=== PATIENT | female | born 1995 | race Caucasian/White ===

== ENCOUNTER 2018-12-14 10:14 | Emergency (ER) | payer OTHER ==
[~2018-12-14] VITALS: Ht 167.6 cm; Wt 63.0 kg
[2018-12-14] MEDS ORDERED: [UNRECOGNIZED DRUG - REMARK] (10:19)
[2018-12-14 11:41] LABS: BASO % 0.4 % (0.0-1.0); EOS # 0.1 10^3/uL (0.0-0.5); EOS % 0.6 % (0.0-3.0); HEMATOCRIT 42.7 % (36.0-47.0); HEMOGLOBIN 14.8 g/dl (12.0-15.5); LYMPH # 2.4 10^3/uL (1.5-5.0); LYMPH % 29.1 % (24.0-44.0); MEAN CORPUSCULAR HEMOGLOBIN 31.8 pg (27.0-33.0); MEAN CORPUSCULAR HGB CONC 34.7 g/dl (32.0-36.5); MEAN CORPUSCULAR VOLUME 91.8 fl (80.0-96.0); MONO # 0.4 10^3/uL (0.0-0.8); MONO % 5.2 % (0.0-5.0); NEUTROPHILS # 5.3 10^3/uL (1.5-8.5); NEUTROPHILS % 64.2 % (36.0-66.0); PLATELET COUNT, AUTOMATED 195 10^3/uL (150-450); RED BLOOD COUNT 4.65 10^6/uL (4.00-5.40); WHITE BLOOD COUNT 8.2 10^3/uL (4.0-10.0)
[2018-12-14 12:11] LABS: ALBUMIN 4.1 GM/DL (3.2-5.2); ALT/SGPT 15 U/L (12-78); BILIRUBIN,DIRECT < 0.1 MG/DL (0.0-0.2); BILIRUBIN,TOTAL 0.2 MG/DL (0.2-1.0); BLOOD UREA NITROGEN 10 MG/DL (7-18); CALCIUM LEVEL 9.3 MG/DL (8.5-10.1); CARBON DIOXIDE LEVEL 28 MEQ/L (21-32); CHLORIDE LEVEL 106 MEQ/L (98-107); CREATININE FOR GFR 0.73 MG/DL (0.55-1.30); GLOMERULAR FILTRATION RATE > 60.0 (>60); GLUCOSE, FASTING 79 MG/DL (70-100); LIPASE 125 U/L (73-393); POTASSIUM SERUM 4.3 MEQ/L (3.5-5.1); SODIUM LEVEL 139 MEQ/L (136-145); TOTAL PROTEIN 7.8 GM/DL (6.4-8.2)
[2018-12-14] MEDS ORDERED: KETO10TAB PO (13:56)
[2018-12-14 14:03] VITALS: BP 122/70
--- NOTE | 2018-12-15 07:13 | REP ---
PELVIC ULTRASOUND: Real-time sonographic evaluation of pelvis performed. Transabdominal and endovaginal technique are utilized. Urinary bladder is collapsed. The uterus measures 7.6 x 3.6 x 4.2 cm. Endometrial thickness is 7 mm. Right ovary measures 3.1 x 1.9 x 2.9 cm and left ovary 5.8 x 3.5 x 4.7 cm. There is a cyst of the left ovary 4.6 x 2.4 x 4.3 cm. There is a large amount of free fluid in the pelvis. There is no evidence of ovarian torsion, RI right ovary 0.63 and left ovary 0.55 with duplex Doppler evaluation. IMPRESSION: Left ovarian cyst appears partially collapsed with maximum diameter 4.6 cm. No torsion. Large amount of free fluid. Electronically Signed by Win Headley MD 12/16/2018 10:01 A
--- NOTE | 2018-12-22 13:41 | ED PDOC ---
Post-Departure Follow-Up ft hang nixon faxed formal report of pelvic us for fu Laura Salmeron MD Dec 22, 2018 13:41
== END 2018-12-14 14:05 | disposition home or self-care (01) ==
LOC: M ED 10:14
DX: N83.202 Unspecified ovarian cyst, left side (principal)

== ENCOUNTER → 2019-11-07 23:00 | Emergency (ER) | payer OTHER ==
[~2019-11-07 23:00] MED LIST: KETO10TAB PO; [UNRECOGNIZED DRUG - REMARK]
== END | disposition left against medical advice (07) ==
LOC: M ED 23:00
DX: Z53.21 Procedure and treatment not carried out due to patient leaving prior to being seen by health care provider (principal)

== ENCOUNTER → 2021-01-10 | Outpatient (CLI) | payer OTHER ==
[~2021-01-10] MED LIST changes: +B-2100TA PO; +DICY20TA11 PO; +LOES1TAB7 PO; +MAGN400T33 PO; +RIZA5TAB52 PO
[2021-01-10 15:16] LABS: BASO % 0.2 % (0.0-1.0); EOS # 0.1 10^3/uL (0.0-0.5); EOS % 1.1 % (0.0-3.0); HEMOGLOBIN 13.9 g/dl (12.0-15.5); LYMPH # 3.4 10^3/uL (1.5-5.0); LYMPH % 41.6 % (24.0-44.0); MEAN CORPUSCULAR HEMOGLOBIN 31.4 pg (27.0-33.0); MEAN CORPUSCULAR HGB CONC 34.8 g/dl (32.0-36.5); MEAN CORPUSCULAR VOLUME 90.3 fl (80.0-96.0); MONO # 0.5 10^3/uL (0.0-0.8); MONO % 5.7 % (2.0-8.0); NEUTROPHILS # 4.1 10^3/uL (1.5-8.5); PLATELET COUNT, AUTOMATED 227 10^3/uL (150-450); RED BLOOD COUNT 4.43 10^6/uL (4.00-5.40); WHITE BLOOD COUNT 8.1 10^3/uL (4.0-10.0)
[2021-01-10 17:01] LABS: ALBUMIN 3.9 GM/DL (3.2-5.2); ALT/SGPT 21 U/L (12-78); BILIRUBIN,DIRECT < 0.1 MG/DL (0.0-0.2); BILIRUBIN,TOTAL 0.2 MG/DL (0.2-1.0); BLOOD UREA NITROGEN 7 MG/DL (7-18); CREATININE FOR GFR 0.84 MG/DL (0.55-1.30); GLOMERULAR FILTRATION RATE > 60.0 (>60); IRON (FE) 76 UG/DL (50-170); PERCENT SATURATION 24.7 % (13.2-45.0); TOTAL IRON BINDING CAPACITY 308 UG/DL (250-450); TOTAL PROTEIN 7.7 GM/DL (6.4-8.2)
[2021-01-16 07:07] LABS: IGASUB2 139.9 mg/dL (73.2-301.2); IGASUB3 32.9 mg/dL (13.4-97.9); IgA SERUM (part of Subclasses) 186 mg/dL (87-352); TISSUE TRANSGLUTAMINASE IgA <2 U/mL (0-3)
== END ==
LOC: M LAB 14:21
PROVIDERS: ATTEND Internal Medicine Gastroenterology
DX: R10.30 Lower abdominal pain, unspecified (principal); R19.7 Diarrhea, unspecified; K62.5 Hemorrhage of anus and rectum; Z79.899 Other long term (current) drug therapy
CPT/HCPCS: 36415; 80076; 82565; 82784; 83516; 83550; 84520; 85025; G0463

== ENCOUNTER 2021-02-13 06:09 | Day surgery (SDC) | payer OTHER ==
[~2021-02-13] VITALS: Ht 167.6 cm; Wt 71.1 kg
[~2021-02-13 06:09] MED LIST changes: +ACETAMINOPHEN *IV* 1,000 MG IV ONE; +LIDOCAINE 1% MDV 20ML VIAL SQ PRN; +LR 1,000 ML IV ONE
--- OUTSIDE RECORDS SUMMARY | 2021-02-13 06:13 | CCD ---
Author Author [facility] Organization [facility] Address Unknown Phone Unavailable Support Name Relationship Address Phone CECILIA CAREY Next Of Kin [address] [facility] [address] [place] [address] [facility] Next Of Kin [address] [place] [address] Unavailable RHETT HALEY Next Of Kin [id number] [place] [address] Re-disclosure Warning The records that you are about to access may contain information from federally-assisted alcohol or drug abuse programs. If such information is present, then the following federally mandated warning applies: This information has been disclosed to you from records protected by federal confidentiality rules (42 CFR part 2). The federal rules prohibit you from making any further disclosure of this information unless further disclosure is expressly permitted by the written consent of the person to whom it pertains or as otherwise permitted by 42 CFR part 2. A general authorization for the release of medical or other information is NOT sufficient for this purpose. The Federal rules restrict any use of the information to criminally investigate or prosecute any alcohol or drug abuse patient.The records that you are about to access may contain highly sensitive health information, the redisclosure of which is protected by Article 27-F of the [facility] Public Health law. If you continue you may have access to information: Regarding HIV / AIDS; Provided by facilities licensed or operated by the [facility] Office of Mental Health; or Provided by the [facility] Office for People With Developmental Disabilities. If such information is present, then the following [facility] mandated warning applies: This information has been disclosed to you from confidential records which are protected by state law. State law prohibits you from making any further disclosure of this information without the specific written consent of the person to whom it pertains, or as otherwise permitted by law. Any unauthorized further disclosure in violation of state law may result in a fine or intermediate sentence or both. A general authorization for the release of medical or other information is NOT sufficient authorization for further disc losure. Immunizations Vaccine Date Status Description Data Source(s) COVID-19 VACCINE John 12/08/2020 12:00:00 AM EDT completed [employer] Vaccine Series Complete: YESThis Data wa s Submitted to [facility] [employer]. Medications Medication Brand Name Start Date Product Form Dose Route Admi nistrative Instructions Pharmacy Instructions Status Indications Reaction Description Data Source(s) Dicyclomine Hydrochloride 20 MG Oral Tablet Dicyclomine HCL 01/23/2021 12:00:00 AM EDT ORAL active [facility] ([facility]) POLYETHYLENE GLYCOL 3350 142 MG/ML Oral Solution [Miralax] M iralax 01/23/2021 12:00:00 AM EDT active M EDENT ([facility]) Insurance Providers Payer name Policy type / Coverage type Policy ID Covered constitution party ID Covered constitution party's relationship to pinto Policy Pinto Plan Information [facility] ACTIVE DUTY [id number] Problems, Conditions, and Diagnoses No Information Surgeries/Procedures No Information Results ID Date Data Source [id number] 02/08/2021 10:05:00 AM EDT [facility] Name Value Range Interpretation Code Description Data Lydia rce(s) Supporting Document(s) SARS coronavirus 2 RNA Not Detected [facility] This lab was ordered by [facility] and reported by [facility]. ID Date Data Source [id number] 01/10/2021 02:45:00 PM EDT [facility] ([facility]) Name Value Range Interpretation Code Description Data Lydia rce(s) Supporting Document(s) Iron (Fe) 76 ug/dL 50-170 Normal (applies to non-numeric resul ts) [facility] ([facility]) Percent Saturation 24.7 % 13.2-45.0 Normal (applies to non-numer ic results) [facility] ([facility]) Total Iron Binding Capacity 308 ug/dL 250-450 Norm al (applies to non-numeric results) [facility] ([facility]) ID Date Data Source [id number] 01/10/2021 02:45:00 PM EDT [facility] ([facility]) Name Value Range Interpretation Code Description Data Lydia rce(s) Supporting Document(s) Glomerular Filtration Rate Laboratory test result Normal (applies to non- numeric results) [facility]) <content>Units are mL/min/1.73 m2</content>
<content></content>
<content>Chronic Kidney Disease Staging per NKF:</content>
<content></content>
<content>Stage I & II GFR >=60 Normal to Mildly Decreased</content>
<content>Stage III GFR 30- 59 Moderately Decreased</content>
<content>Stage IV GFR 15-29 Severely Decreased</content>
<content>Stage V GFR <15 Very Little GFR Left</content>
<content>ESRD GFR <15 on TIRE MOLD ENGRAVER</content>
<content></content> Creatinine For GFR 0.84 mg/dL 0.55-1.30 Normal (applies to non -numeric results) [facility]) ID Date Data Source [id number] 01/10/2021 02:45:[address] [facility]) Name Value Range Interpretation Code Description Data Lydia rce(s) Supporting Document(s) Urea nitrogen [Mass/volume] in Serum or Plasma 7 mg/dL 7 -18 Normal (applies to non-numeric results) [facility]) <content>note:<nlbl:demographic_changed> </content>
<content></content> ID Date Data Source [id number] 01/10/2021 02:45:[address] [facility]) Name Value Range Interpretation Code Description Data Lydia rce(s) Supporting Document(s) White Blood Count 8.1 10 4.0-10.0 Normal (applies to non-numeri c results) [facility]) Hemoglobin 13.9 g/dL 12.0-15.5 Normal (applies to non-numeric resul ts) [facility]) Red Blood Count 4.43 10 4.00-5.40 Normal (applies to non-numeric results) [facility], ) Hematocrit 40.0 % 36.0-47.0 Normal (applies to non-numeric resul ts) [facility]) Mean Corpuscular Volume 90.3 fl 80.0-96.0 Normal ( applies to non-numeric results) [facility]) Red Cell Distribution Width 11.9 % 11.5-14.5 Norm al (applies to non-numeric results) [facility]) Mean Corpuscular HGB Conc 34.8 g/dL 32.0-36.5 Normal (applies to non-numeric results) [facility]) Mean Corpuscular Hemoglobin 31.4 pg 27.0-33.0 Norm al (applies to non-numeric results) [facility] ([facility]) Platelet Count, Automated 227 10 150-450 Normal (applies to non-numeric results) [facility]) Neutrophils % 51.0 % 36.0-66.0 Normal (applies to non-numeric re sults) [facility]) Lymph % 41.6 % 24.0-44.0 Normal (applies to non-numeric resul ts) [facility]) [place] % 5.7 % 2.0-8.0 Normal (applies to non-numeric resul ts) [facility]) Eos % 1.1 % 0.0-3.0 Normal (applies to non-numeric resul ts) [facility]) Immature Granulocyte % 0.4 % 0-3.0 Normal (applies to non-n umeric results) [facility]) Baso % 0.2 % 0.0-1.0 Normal (applies to non-numeric resul ts) [facility]) Nucleated Red Blood Cell % 0.0 % 0-0 Normal (applies to n on-numeric results) [facility]) Neutrophils # 4.1 10 1.5-8.5 Normal (applies to non-numeric re sults) [facility] ([facility]) Lymph # 3.4 10 1.5-5.0 Normal (applies to non-numeric resul ts) [facility] ([facility]) [place] # 0.5 10 0.0-0.8 Normal (applies to non-numeric resul ts) [facility]) Eos # 0.1 10 0.0-0.5 Normal (applies to non-numeric resul ts) [facility] ([facility]) Baso # 0.0 10 0.0-0.2 Normal (applies to non-numeric resul ts) [facility] ([facility]) ID Date Data Source [id number] 01/10/2021 02:45:[address] [facility]) Name Value Range Interpretation Code Description Data Lydia rce(s) Supporting Document(s) IgA Serum (part of Subclasses) 186 mg/dL 87-352 N ormal (applies to non-numeric results) [facility] ([facility]) Igasub2 139.9 mg/dL 73.2-301.2 Normal (applies to non-numeric resu lts) [facility]) Igasub3 32.9 mg/dL 13.4-97.9 Normal (applies to non-numeric resul ts) [facility]) ID Date Data Source [id number] 01/10/2021 02:45:[address] [facility]) Name Value Range Interpretation Code Description Data Lydia rce(s) Supporting Document(s) Tissue transglutaminase IgA Ab [Units/volume] in Serum Labor atory test result 0-3 Normal (applies to non-numeric results) [facility]) Negative 0 - 3 Weak Positive 4 - 10 Positive >10 . Tissue Transglutaminase (tTG) has been identified as the endomysial antigen. Studies have demonstr- ated that endomysial IgA antibodies have over 99% specificity for gluten sensitive enteropathy. Performed at: RN - [facility] [address] [id number] Spray Booth Operator: Jessica Alonso MD, Phone: [phone] Performed at: [facility] [address] [id number] Spray Booth Operator: Rob Singh MD, Phone: [phone] ID Date Data Source [id number] 01/10/2021 02:45:00 PM EDT [facility] ([facility]) Name Value Range Interpretation Code Description Data Lydia rce(s) Supporting Document(s) Ast/Sgot 14 U/L 7-37 Normal (applies to non-numeric resul ts) [facility] ([facility], ) Alt/SGPT 21 U/L 12-78 Normal (applies to non-numeric resul ts) [facility] ([facility]) Alkaline Phosphatase 61 U/L 45-117 Normal (applies to non-num christine results) [facility] ([facility]) Bilirubin,Total 0.2 mg/dL 0.2-1.0 Normal (applies to non-numeric results) [facility] ([facility]) Bilirubin,Direct Laboratory test result 0.0-0.2 Normal ( applies to non-numeric results) [facility] ([facility]) Total Protein 7.7 GM/DL 6.4-8.2 Normal (applies to non-numeric re sults) [facility] ([facility]) Albumin 3.9 GM/DL 3.2-5.2 Normal (applies to non-numeric resul ts) [facility] ([facility]) Albumin/Globulin Ratio 1.0 1.2-2.2 Below low normal [facility] ([facility]) ID Date Data Source [id number] 01/10/2021 02:45:00 PM EDT [facility] ([facility]) Name Value Range Interpretation Code Description Data Lydia rce(s) Supporting Document(s) Calprotectin [Mass/mass] in Stool Laboratory test result [facility] ([facility]) Lactoferrin [Presence] in Stool by Immunoassay Laboratory test result [facility] ([facility]) ID Date Data Source [id number] 08/16/2020 02:52:00 PM EDT [facility] Name Value Range Interpretation Code Description Data Lydia rce(s) Supporting Document(s) SARS coronavirus 2 RNA Not Detected [facility] This lab was ordered by [facility] and reported by [facility]. Procedure Social History No Information Vital Signs ID Date Data Source UNK Name Value Range Interpretation Code Description Data Source(s) Systolic blood pressure 118 mm[Hg] 118 mm[Hg] M [facility] ([facility]) Diastolic blood pressure 64 mm[Hg] 64 mm[Hg] [facility] ([facility]) Body height 66 [in_i] 66 [in_i] [facility] ([facility]) 5'6" Body weight 158.00 [lb_av] 158.00 [lb_av] [facility] ([facility]) Body mass index (BMI) [Ratio] 25.5 kg/m2 25.5 k g/m2 [facility] ([facility]) [place] body weight 130 [lb_av] 130 [lb_av] [facility] ([facility]) Body weight 71.669 kg 71.669 kg [facility] ([facility]) Body surface area Derived from formula 1.81 m2 1.81 m2 [facility] ([facility])
--- OUTSIDE RECORDS SUMMARY | 2021-02-13 06:13 | CCD | Continuity of Care Document ---
Author Author Keke MERIDA M.D. Organization Unknown Address [address], [address] [place] [address] Phone [phone] Care Team Providers Care Stain Remover Name Role Phone Paola Gracia CNM AUTM [phone] Problems Description No Information Available Social History Type Date Description Comments Sex Unknown ETOH Use Denies alcohol use Tobacco Use Start: Unknown Non Smoker Allergies and adverse reactions Description No Known Drug Allergies Medications Active Medications SIG Qnty Indications Ordering Provide r Date Doxycycline Hyclate 100mg Tablets 1t/bid Unknown Naproxen 500mg Tablets 1t/prn Unknown Metronidazole 500mg Tablets 1 000mg Unknown Magnesium Oxide 400mg Tablets 1t/d Unknown Rizatriptan Benzoate 5mg Tablets 1t/prn Unknown Riboflavin 400MG 1t/d Unknown 00 Immunizations Description No Information Available Vital Signs Date Vital Result Comment 01/10/2021 11:18am BP Systolic 118 mmHg BP Diastolic 64 mmHg Height 66 inches 5'6" Weight 158.00 lb BMI (Body Mass Index) 25.5 kg/m2 [place] Body Weight 130 lb Weight 71.669 kg BSA (Body Surface Area) 1.81 m2 Results Test Acquired Date Facility Test Result H/L Range Note Laboratory test finding 01/10/2021 [facility] Main Lab [address] [place] [address] [phone] Tissue Transglutaminase Iga <pending> CBC With Differential 01/10/2021 [facility] Main Lab [address] [place] [address] [phone] White Blood Count 8.1 10 Normal 4.0-10.0 Red Blood Count 4.43 10 Normal 4.00-5.40 Hemoglobin 13.9 g/dL Normal 12.0-15.5 Hematocrit 40.0 % Normal 36.0-47.0 Mean Corpuscular Volume 90.3 fl Normal 80.0-96.0 Mean Corpuscular Hemoglobin 31.4 pg Normal 27.0-33.0 Mean Corpuscular HGB Conc 34.8 g/dL Normal 32.0-36.5 Red Cell Distribution Width 11.9 % Normal 11.5-14.5 Platelet Count, Automated 227 10 Normal 150-450 Neutrophils % 51.0 % Normal 36.0-66.0 Lymph % 41.6 % Normal 24.0-44.0 Starr % 5.7 % Normal 2.0-8.0 Eos % 1.1 % Normal 0.0-3.0 Baso % 0.2 % Normal 0.0-1.0 Immature Granulocyte % 0.4 % Normal 0-3.0 Nucleated Red Blood Cell % 0.0 % Normal 0-0 Neutrophils # 4.1 10 Normal 1.5-8.5 Lymph # 3.4 10 Normal 1.5-5.0 Starr # 0.5 10 Normal 0.0-0.8 Eos # 0.1 10 Normal 0.0-0.5 Baso # 0.0 10 Normal 0.0-0.2 BUN & Creatinine ([facility]) 01/10/2021 [facility] Main Lab [address] [place] [address] [phone] Blood Urea Nitrogen <pending> Laboratory test finding 01/10/2021 [facility] Main Lab [address] [place] [address] [phone] Calprotectin Stool Sendout <pending> Stool For Polys <pending> Procedures Description No Information Available Medical Devices Description No Information Available Encounters Description No Information Available Assessments Date Code Description Provider 01/10/2021 R10.30 Lower abdominal pain, unspecifie d Estuardo Merida M.D. 01/10/2021 K62.5 Hemorrhage of anus and rectum Misael Merida M.D. 01/10/2021 R19.7 Diarrhea, unspecified Estuardo Merida M.D. Plan of Treatment Future Appointment(s):* 03/22/2021 10:30 am - Estuardo Merida M.D. at [facility] 01/10/2021 - Estuardo Merida M.D.* R10.30 Lower abdominal pain, unspecified * K62.5 Hemorrhage of anus and rectum * R19.7 Diarrhea, unspecified Functional Status Description No Information Available Mental Status Description No Information Available Referrals Refer to Dr Reason for Referral Status Appt Date Estuardo Merida M.D. MELENA, 1 NEW 12/14 TO 8, 3 EST 12/14/20 TO 12/14/21 Scheduled 01/10/2021 [facility] [address], [place] [id number] [phone]
--- OUTSIDE RECORDS SUMMARY | 2021-02-13 06:13 | CCD | Continuity of Care Document ---
Author Author Keke MERIDA M.D. Organization Unknown Address [address], [address] [place] [address] Phone [phone] Care Team Providers Care Rivet Tapping Machine Operator Name Role Phone Paola Gracia CNM AUTM [phone] Problems Description No Information Available Social History Type Date Description Comments Sex Unknown ETOH Use Denies alcohol use Tobacco Use Start: Unknown Non Smoker Allergies and adverse reactions Description No Known Drug Allergies Medications Active Medications SIG Qnty Indications Ordering Provide r Date Dicyclomine HCL 20mg Tablets take 1 tablet by mouth 2 to 3 times daily, take atleast 15 minutes before meals (for diarrhea and abdominal cramps) 90tabs Estuardo Merida M.D. 01/23/2021 Miralax 17GM/Scoop Powder 17 gram per dose, mixed with 8 oz water/fluid and to be taken 1 -2 times a day. ( hold or decrease dose if having diarrhea) 238gm Estuardo young M.D. 01/23/2021 Doxycycline Hyclate 100mg Tablets 1t/bid Unknown Naproxen [...] lb BMI (Body Mass Index) 25.5 kg/m2 [place] Body Weight 130 lb Weight 71.669 kg BSA (Body Surface Area) 1.81 m2 Results Test Acquired Date Facility Test Result H/L Range Note Liver Profile 01/10/2021 [facility] Main Lab [address] [place] [address] [phone] Ast/Sgot 14 U/L Normal 7-37 Alt/SGPT 21 U/L Normal 12-78 Alkaline Phosphatase 61 U/L Normal 45-117 Bilirubin,Total 0.2 mg/dL Normal 0.2-1.0 Bilirubin,Direct < 0.1 mg/dL Normal 0.0-0.2 Total Protein 7.7 GM/DL Normal 6.4-8.2 Albumin 3.9 GM/DL Normal 3.2-5.2 Albumin/Globulin Ratio 1.0 Low 1.2-2.2 Laboratory test finding 01/10/2021 [facility] Main Lab [address] [place] [address] [phone] Tissue Transglutaminase IgA <2 U/mL Normal 0-3 1 Iga Subclasses 01/10/2021 [facility] Main Lab [address] [place] [address] [phone] IgA Serum (part of Subclasses) 186 mg/dL Normal 8 7-352 Igasub2 139.9 mg/dL Normal 73.2-301.2 Igasub3 32.9 mg/dL Normal 13.4-97.9 CBC With Differential 01/10/2021 [facility] Main Lab [address] [place] [address] [phone] White Blood Count 8.1 10 Normal 4.0-10.0 [...] 36.0-66.0 Lymph % 41.6 % Normal 24.0-44.0 [place] % 5.7 % Normal 2.0-8.0 Eos % 1.1 % Normal 0.0-3.0 Baso % 0.2 % Normal 0.0-1.0 Immature Granulocyte % 0.4 % Normal 0-3.0 Nucleated Red Blood Cell % 0.0 % Normal 0-0 Neutrophils # 4.1 10 Normal 1.5-8.5 Lymph # 3.4 10 Normal 1.5-5.0 [place] # 0.5 10 Normal 0.0-0.8 Eos # 0.1 10 Normal 0.0-0.5 Baso # 0.0 10 Normal 0.0-0.2 BUN & Creatinine ([facility]) 01/10/2021 [facility] Main Lab [address] [place] [address] [phone] Blood Urea Nitrogen 7 mg/dL Normal 7-18 2 Creatinine With GFR 01/10/2021 [facility] Main Lab [address] [place] [address] [phone] Creatinine For GFR 0.84 mg/dL Normal 0.55-1.30 Glomerular Filtration Rate > 60.0 Normal >60 3 Total Iron Binding Capacit 01/10/2021 [facility] Main Lab [address] [place] [address] [phone] Iron (Fe) 76 g/dL Normal 50-170 Total Iron Binding Capacity 308 g/dL Normal 250-450 Percent Saturation 24.7 % Normal 13.2-45.0 1 Negative 0 - 3 Weak Positive 4 - 10 Positive >10 . Tissue Transglutaminase (tTG) has been identified as the endomysial antigen. Studies have demonstr- ated that endomysial IgA antibodies have over 99% specificity for gluten sensitive enteropathy. Performed at: - [facility] [id number] Vaccinator: Jessica Alonso MD, Phone: [phone] Performed at: - [facility] [address] [id number] Vaccinator: Rob Singh MD, Phone: [phone] 2 note:<nlbl:vivienne_rigo ed> 3 Units are mL/min/1.73 m2 Chronic Kidney Disease Staging per NKF: Stage I & II GFR >=60 Normal to Mildly Decreased Stage III GFR 30-59 Moderately Decreased Stage IV GFR 15-29 Severely Decreased Stage V GFR <15 Very Little GFR Left ESRD GFR <15 on SURGEON PARTNER Procedures Description No Information Available Medical Devices Description No Information Available Encounters Description No Information Available Assessments Date Code Description Provider 01/10/2021 R10.30 Lower abdominal pain, unspecifie d Estuardo Merida M.D. 01/10/2021 K62.5 Hemorrhage of anus and rectum Ch shyann Merida M.D. 01/10/2021 R19.7 Diarrhea, unspecified Estuardo Merida M.D. Plan of Treatment Future Appointment(s):* 03/22/2021 10:30 am - Estuardo Merida M.D. at [facility] 01/10/2021 - Estuardo Merida M.D.* R10.30 Lower abdominal pain, unspecified * K62.5 Hemorrhage of anus and rectum * R19.7 Diarrhea, unspecified * * Comments:* Impression:-- Lower abdominal pain with irregular bowel movements and mostly diarrhea and intermittent rectal bleeding - DDx - need to r/o Colon polyps vs IBD vs IBS vs hemorrhioids vs Colon mass ( less likely). * Recommendations:* -- Educated patient on prior test results and all possible differential diagnoses. All questions answered. -- Will start on PPI course for now. -- Return to GI clinic in 6- 8 weeks if persistnet symptoms. -- Follow up with PMD for routine medical care and other age appropriate health maintenance.. Functional Status Description No Information Available Mental Status Description No Information Available Referrals Refer to Reason for Referral Status Appt Date Estuardo Merida M.D. MELENA, 1 NEW 12/14 TO 8, 3 EST 12/14/20 TO 12/14/21 Scheduled 01/10/2021 [facility] [address], [address] [place] [address] [phone]
--- OUTSIDE RECORDS SUMMARY | 2021-02-13 06:13 | CCD | Continuity of Care Document ---
Author Author Keke MERIDA M.D. Organization Unknown Address [address] [facility], [address] [place] [address] Phone [phone] Care Team Providers Care Administrative Job Titles Name Role Phone Paola Gracia CNM AUTM [phone] Problems Description No Information Available Social History [...] lb BMI (Body Mass Index) 25.5 kg/m2 [place] Body Weight 130 lb Weight 71.669 kg BSA (Body Surface Area) 1.81 m2 Results Test Acquired Date Facility Test Result H/L Range Note Liver Profile 01/10/2021 [facility] Main Lab [address] [place] [address] [phone] Ast/Sgot 14 U/L Normal 7-37 Alt/SGPT 21 U/L Normal 12-78 Alkaline Phosphatase 61 U/L Normal 45-117 Bilirubin,Total 0.2 mg/dL Normal 0.2-1.0 Bilirubin,Direct < 0.1 mg/dL Normal 0.0-0.2 Total Protein 7.7 GM/DL Normal 6.4-8.2 Albumin 3.9 GM/DL Normal 3.2-5.2 Albumin/Globulin Ratio 1.0 Low 1.2-2.2 Laboratory test finding 01/10/2021 [facility] Main Lab [address] [place] [address] [phone] Tissue Transglutaminase Iga <pending> CBC With Differential 01/10/2021 [facility] Main Lab [address] [place] [address] [phone] White Blood Count 8.1 10 Normal 4.0-10.0 [...] 36.0-66.0 Lymph % 41.6 % Normal 24.0-44.0 [place] % 5.7 % Normal 2.0-8.0 Eos % 1.1 % Normal 0.0-3.0 Baso % 0.2 % Normal 0.0-1.0 Immature Granulocyte % 0.4 % Normal 0-3.0 Nucleated Red Blood Cell % 0.0 % Normal 0-0 Neutrophils # 4.1 10 Normal 1.5-8.5 Lymph # 3.4 10 Normal 1.5-5.0 [place] # 0.5 10 Normal 0.0-0.8 Eos # 0.1 10 Normal 0.0-0.5 Baso # 0.0 10 Normal 0.0-0.2 BUN & Creatinine ([facility]) 01/10/2021 [facility] Main Lab [address] [place] [address] [phone] Blood Urea Nitrogen 7 mg/dL Normal 7-18 1 Creatinine With GFR 01/10/2021 [facility] Main Lab [address] [place] [address] [phone] Creatinine For GFR 0.84 mg/dL Normal 0.55-1.30 Glomerular Filtration Rate > 60.0 Normal >60 2 Total Iron Binding Capacit 01/10/2021 [facility] Main Lab [address] [place] [address] [phone] Iron (Fe) 76 g/dL Normal 50-170 Total Iron Binding Capacity 308 g/dL Normal 250-450 Percent Saturation 24.7 % Normal 13.2-45.0 Laboratory test finding 01/10/2021 [facility] Main Lab [address] [place] [address] [phone] Calprotectin Stool Sendout <pending> Stool For Polys <pending> 1 note:<nlbl:demographic_chang ed> 2 Units are mL/min/1.73 m2 Chronic Kidney Disease Staging per NKF: Stage I & II GFR >=60 Normal to Mildly Decreased Stage III GFR 30-59 Moderately Decreased Stage IV GFR 15-29 Severely Decreased Stage V GFR <15 Very Little GFR Left ESRD GFR <15 on PIPELINE GANG SUPERVISOR Procedures Description No Information Available Medical Devices Description No Information Available Encounters Description No Information Available Assessments Date Code Description Provider 01/10/2021 R10.30 Lower abdominal pain, unspecifie d Estuardo Merida M.D. 01/10/2021 K62.5 Hemorrhage of anus and rectum Misael Merida M.D. 01/10/2021 R19.7 Diarrhea, unspecified Estuardo Merida M.D. Plan of Treatment Future Appointment(s):* 03/22/2021 10:30 am - Estuardo Merida M.D. at [facility] 01/10/2021 - Estuardo Merida M.D.* R10.30 Lower abdominal pain, unspecified * K62.5 Hemorrhage of anus and rectum * R19.7 Diarrhea, unspecified Functional Status Description No Information Available Mental Status Description No Information Available Referrals Refer to Reason for Referral Status Appt Date Estuardo Merida M.D. OSVALDO, 1 NEW 12/14 TO 8, 3 EST 12/14/20 TO 12/14/21 Scheduled 01/10/2021 [facility]-[address], [place] [address] [phone]
--- OUTSIDE RECORDS SUMMARY | 2021-02-13 06:13 | CCD | Continuity of Care Document ---
Author Author Keke MERIDA M.D. Organization Unknown Address [address] [facility], [address] [place] [address] Phone [phone] Care Team Providers Care Tanker Serviceman Name Role Phone Paola Gracia CNM AUTM [phone] Problems Description No Information Available Social History [...] lb BMI (Body Mass Index) 25.5 kg/m2 Margaret Body Weight 130 lb Weight 71.669 kg BSA (Body Surface Area) 1.81 m2 Results Test Acquired Date Facility Test Result H/L Range Note Liver Profile 01/10/[address] [facility] nter Main Lab [address] [place] [address] [phone] Ast/Sgot 14 U/L Normal 7-37 Alt/SGPT 21 U/L Normal 12-78 Alkaline Phosphatase 61 U/L Normal 45-117 Bilirubin,Total 0.2 mg/dL Normal 0.2-1.0 Bilirubin,Direct < 0.1 mg/dL Normal 0.0-0.2 Total Protein 7.7 GM/DL Normal 6.4-8.2 Albumin 3.9 GM/DL Normal 3.2-5.2 Albumin/Globulin Ratio 1.0 Low 1.2-2.2 Laboratory test finding 01/10/2021 [facility] Main Lab [address] [place] [address] [phone] Tissue Transglutaminase Iga <pending> CBC With Differential 01/10/2021 [facility] Main Lab [address] [place] [address] [phone] White Blood Count 8.1 10 Normal 4.0-10.0 [...] 36.0-66.0 Lymph % 41.6 % Normal 24.0-44.0 [place] % 5.7 % Normal 2.0-8.0 Eos % 1.1 % Normal 0.0-3.0 Baso % 0.2 % Normal 0.0-1.0 Immature Granulocyte % 0.4 % Normal 0-3.0 Nucleated Red Blood Cell % 0.0 % Normal 0-0 Neutrophils # 4.1 10 Normal 1.5-8.5 Lymph # 3.4 10 Normal 1.5-5.0 [place] # 0.5 10 Normal 0.0-0.8 Eos # 0.1 10 Normal 0.0-0.5 Baso # 0.0 10 Normal 0.0-0.2 BUN & Creatinine ([facility]) 01/10/2021 [facility] Main Lab [address] [place] [address] [phone] Blood Urea Nitrogen 7 mg/dL Normal 7-18 1 Creatinine With GFR 01/10/[address] [facility] nter Main Lab [address] [place] [address] [phone] Creatinine For GFR 0.84 mg/dL Normal 0.55-1.30 Glomerular Filtration Rate > 60.0 Normal >60 2 Total Iron Binding Capacit 01/10/2021 [facility] Main Lab [address] [place] [address] [phone] Iron (Fe) 76 g/dL Normal 50-170 Total Iron Binding Capacity 308 g/dL Normal 250-450 Percent Saturation 24.7 % Normal 13.2-45.0 Laboratory test finding 01/10/2021 [facility] Main Lab [address] [place] [address] [phone] Calprotectin Stool Sendout <pending> Stool For Polys <pending> 1 note:<nlbl:demographic_chang ed> 2 Units are mL/min/1.73 m2 Chronic Kidney Disease Staging per NKF: Stage I & II GFR >=60 Normal to Mildly Decreased Stage III GFR 30-59 Moderately Decreased Stage IV GFR 15-29 Severely Decreased Stage V GFR <15 Very Little GFR Left ESRD GFR <15 on SHOWER ROOM ATTENDANT Procedures Description No Information Available Medical Devices Description No Information Available Encounters Description No Information Available Assessments Date Code Description Provider 01/10/2021 R10.30 Lower abdominal pain, unspecifie d Estuardo Merida M.D. 01/10/2021 K62.5 Hemorrhage of anus and rectum Misael Merida M.D. 01/10/2021 R19.7 Diarrhea, unspecified Estuardo Merida M.D. Plan of Treatment Future Appointment(s):* 03/22/2021 10:30 am - Estuardo Merida M.D. at [facility] 01/10/2021 - Estuardo Merida M.D.* R10.30 Lower abdominal pain, unspecified * K62.5 Hemorrhage of anus and rectum * R19.7 Diarrhea, unspecified Functional Status Description No Information Available Mental Status Description No Information Available Referrals Refer to Reason for Referral Status Appt Date Estuardo Merida M.D. OSVALDO, 1 NEW 12/14 TO 8, 3 EST 12/14/20 TO 12/14/21 Scheduled 01/10/2021 [facility]-[address], [place] [address] [phone]
--- OUTSIDE RECORDS SUMMARY | 2021-02-13 06:13 | CCD | Continuity of Care Document ---
Author Author Keke MERIDA M.D. Organization Unknown Address [address] [facility], [address] [place] [address] Phone [phone] Care Team Providers Care Rec Therapist Name Role Phone Paola Gracia CNM AUTM [phone] Problems Description No Information Available Social History [...] lb BMI (Body Mass Index) 25.5 kg/m2 [place] Body Weight 130 lb Weight 71.669 kg BSA (Body Surface Area) 1.81 m2 Results Test Acquired Date Facility Test Result H/L Range Note Laboratory test finding 01/10/2021 [facility] Main Lab [address] [place] [address] [phone] Tissue Transglutaminase Iga <pending> CBC With Differential 01/10/2021 [facility] Main Lab [address] [place] [address] [phone] White Blood Count 8.1 10 Normal 4.0-10.0 [...] 36.0-66.0 Lymph % 41.6 % Normal 24.0-44.0 [place] % 5.7 % Normal 2.0-8.0 Eos % 1.1 % Normal 0.0-3.0 Baso % 0.2 % Normal 0.0-1.0 Immature Granulocyte % 0.4 % Normal 0-3.0 Nucleated Red Blood Cell % 0.0 % Normal 0-0 Neutrophils # 4.1 10 Normal 1.5-8.5 Lymph # 3.4 10 Normal 1.5-5.0 [place] # 0.5 10 Normal 0.0-0.8 Eos # 0.1 10 Normal 0.0-0.5 Baso # 0.0 10 Normal 0.0-0.2 BUN & Creatinine ([facility]) 01/10/2021 [facility] Main Lab [address] [place] [address] [phone] Blood Urea Nitrogen <pending> Laboratory test finding 01/10/2021 [facility] Main Lab [address] [place] [address] [phone] Calprotectin Stool Sendout <pending> Stool For Polys [...] - Estuardo Merida M.D. at [facility] 01/10/2021 - Estuardo Merida M.D.* R10.30 Lower abdominal pain, unspecified * K62.5 Hemorrhage of anus and rectum * R19.7 Diarrhea, unspecified Functional Status Description No Information Available Mental Status Description No Information Available Referrals Refer to Dr Reason for Referral Status Appt Date Estuardo Merida M.D. MELENA, 1 NEW 12/14 TO 8, 3 EST 12/14/20 TO 12/14/21 Scheduled 01/10/2021 [facility] [address] [facility], [place] [id number] [phone]
[2021-02-13 06:54] LABS: HEMATOCRIT 40.5 % (36.0-47.0); MEAN CORPUSCULAR HEMOGLOBIN 31.3 pg (27.0-33.0); MEAN CORPUSCULAR HGB CONC 34.6 g/dl (32.0-36.5); MEAN CORPUSCULAR VOLUME 90.4 fl (80.0-96.0); PLATELET COUNT, AUTOMATED 222 10^3/uL (150-450); RED BLOOD COUNT 4.48 10^6/uL (4.00-5.40); WHITE BLOOD COUNT 6.6 10^3/uL (4.0-10.0)
[2021-02-13] MEDS ORDERED: SILVER NITRATE APPLICATOR As Ordered ONE ×3 (07:16→07:55)
[2021-02-13] MEDS ORDERED: IODINE STRONG SOLN 15 ML BTL As Ordered ONE (07:16)
[2021-02-13] MEDS ORDERED: LIDOCAINE 2% 100MG/5ML SDV (FOR ANES.) As Ordered ONE (07:18)
[2021-02-13] MEDS ORDERED: fentaNYL 100 MCG/2 ML INJECTION (J3010) As Ordered ONE (07:18)
[2021-02-13] MEDS ORDERED: MIDAZOLAM INJ 2MG/2ML VIAL (J2250 PER 1MG) As Ordered ONE (07:18)
[2021-02-13] MEDS ORDERED: propofoL 200 MG/20 ML VIAL As Ordered ONE ×2 (07:18→07:49)
[2021-02-13] MEDS ORDERED: KETOROLAC 60MG 2ML VIAL As Ordered ONE (07:43)
[2021-02-13] MEDS ORDERED: ONDANSETRON 4MG/2ML VIAL As Ordered ONE (07:43)
[2021-02-13] MEDS ORDERED: dexameTHASONE 4 MG/ML 1ML VIAL (J1100 PER 1MG) As Ordered ONE (07:43)
--- NOTE | 2021-02-13 08:13 | ROOPDOC ---
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 COMPLICATIONS: none REMARKS: none FINDINGS: normal appearing vaginal mucosae; upon acetic acid application area of acetowhite change from 11 o'clock to 1 o'clock, no abnormal vascularity noted SPECIMENS REMOVED: cervical biopsies at 11, 1, 8, and 4 o'clock, endocervical curettings PROCEDURE NOTE: see below DESCRIPTION OF PROCEDURE: After obtaining informed consent the patient was brought to the operating suite and prepped/draped in the usual sterile manner. A surgical timeout was called and the patient name, date of and procedure to be performed were verified. A speculum was placed and 3% acetic acid was applied to the cervix. The colposcope was utilised to examine the entire transformation zone with emphasis on the transformation zone. An area of acetowhite change without abnormal vasculature from eleven to one o'clock was noted and two biopsies were taken of that area. Superintendent Plant Protection biopsies were then taken of eight and four o'clock. An endocervical curettage was performed. Hemostasis was obtained with direct pressure and silver nitrate application. All instruments were removed from the vagina. The patient was awakened from anesthesia and taken to the recovery room in good condition. DO CARMEN Gimenez BRADLEY J. DO Feb 13, 2021 08:13
[2021-02-13 08:30] VITALS: BP 110/67
[2021-02-13] MEDS ORDERED: LR 1,000 ML IV SCH (08:30)
[2021-02-13] MEDS ORDERED: oxyCODONE 5MG TAB PO PRN (08:30)
[2021-02-13] MEDS ORDERED: ONDANSETRON 4MG/2ML VIAL IV PRN (08:30)
[2021-02-13] MEDS ORDERED: fentaNYL 100 MCG/2 ML INJECTION (J3010) IV PRN (08:30)
== END 2021-02-13 08:40 | disposition home or self-care (01) ==
LOC: M SDC 06:09
PROVIDERS: ATTEND Obstetrics & Gynecology
DX: N87.0 Mild cervical dysplasia (principal)
CPT/HCPCS: 36415; 57500; 81025; 85027; 88305; J1100; J1885; J2250; J2405; J3010

== ENCOUNTER → 2021-04-16 | Outpatient (REF) ==
[~2021-04-16] MED LIST changes: -ACETAMINOPHEN *IV* 1,000 MG IV ONE; -DICY20TA11 PO; +DICY20TA20 PO; -LIDOCAINE 1% MDV 20ML VIAL SQ PRN; -LR 1,000 ML IV ONE
== END ==
LOC: M LABSMTC 12:54
PROVIDERS: ATTEND Pediatrics
DX: Z20.822 Contact with and (suspected) exposure to COVID-19 (principal)

== ENCOUNTER 2021-05-18 10:01 | Emergency (ER) | payer OTHER ==
[~2021-05-18] VITALS: Ht 167.6 cm; Wt 73.4 kg
[2021-05-18 11:50] LABS: BASO % 0.3 % (0.0-1.0); EOS # 0.1 10^3/uL (0.0-0.5); EOS % 0.7 % (0.0-3.0); HEMATOCRIT 42.1 % (36.0-47.0); HEMOGLOBIN 14.8 g/dl (12.0-15.5); LYMPH # 3.1 10^3/uL (1.5-5.0); LYMPH % 43.3 % (24.0-44.0); MEAN CORPUSCULAR HEMOGLOBIN 31.3 pg (27.0-33.0); MEAN CORPUSCULAR HGB CONC 35.2 g/dl (32.0-36.5); MONO # 0.4 10^3/uL (0.0-0.8); MONO % 6.3 % (2.0-8.0); NEUTROPHILS # 3.5 10^3/uL (1.5-8.5); NEUTROPHILS % 49.1 % (36.0-66.0); PLATELET COUNT, AUTOMATED 234 10^3/uL (150-450); RED BLOOD COUNT 4.73 10^6/uL (4.00-5.40)
[2021-05-18 13:25] LABS: INR 1.04
[2021-05-18 13:26] LABS: PARTIAL THROMBOPLASTIN TIME 30.3 SECONDS (25.9-37.0)
[2021-05-18 13:28] LABS: D-DIMER QUANT 417.06 ng/ml (<500)
[2021-05-18 13:43] LABS: FREE T4 0.83 NG/DL (0.76-1.46); MAGNESIUM LEVEL 2.3 MG/DL (1.8-2.4)
[2021-05-18 16:03] VITALS: BP 133/83
== END 2021-05-18 16:06 | disposition home or self-care (01) ==
LOC: M ED 10:01
DX: R55 Syncope and collapse (principal); R42 Dizziness and giddiness; R51.9 Headache, unspecified; K58.8 Other irritable bowel syndrome; Z91.010 Allergy to peanuts; Z88.8 Allergy status to other drugs, medicaments and biological substances; Z79.899 Other long term (current) drug therapy

== ENCOUNTER 2021-06-19 07:47 | Day surgery (SDC) | payer OTHER ==
[~2021-06-19] VITALS: Ht 167.6 cm; Wt 71.2 kg
[~2021-06-19 07:47] MED LIST changes: +ACETAMINOPHEN 500 MG TAB PO ONE; +LR 1,000 ML IV ONE; +RIME75TA PO; +TOPI25TA10 PO
[2021-06-19 08:27] LABS: HEMATOCRIT 39.9 % (36.0-47.0); HEMOGLOBIN 13.9 g/dl (12.0-15.5); MEAN CORPUSCULAR HEMOGLOBIN 31.2 pg (27.0-33.0); MEAN CORPUSCULAR HGB CONC 34.8 g/dl (32.0-36.5); MEAN CORPUSCULAR VOLUME 89.5 fl (80.0-96.0); PLATELET COUNT, AUTOMATED 203 10^3/uL (150-450); RED BLOOD COUNT 4.46 10^6/uL (4.00-5.40); WHITE BLOOD COUNT 8.7 10^3/uL (4.0-10.0)
[2021-06-19] MEDS ORDERED: BUPIVACAINE HCL 0.25% 30ML VIAL As Ordered ONE (09:15)
[2021-06-19] MEDS ORDERED: propofoL 200 MG/20 ML VIAL As Ordered ONE (09:35)
[2021-06-19] MEDS ORDERED: LIDOCAINE 2% 100MG/5ML SDV (FOR ANES.) As Ordered ONE (09:35)
[2021-06-19] MEDS ORDERED: ROCURONIUM BROMIDE 50 MG/5 ML VIAL As Ordered ONE (09:35)
[2021-06-19] MEDS ORDERED: MIDAZOLAM INJ 2MG/2ML VIAL (J2250 PER 1MG) As Ordered ONE (09:36)
[2021-06-19] MEDS ORDERED: fentaNYL 100 MCG/2 ML INJECTION As Ordered ONE ×2 (09:36→10:12)
[2021-06-19] MEDS ORDERED: ONDANSETRON 4MG/2ML VIAL As Ordered ONE (09:54)
[2021-06-19] MEDS ORDERED: SUGAMMADEX SODIUM 500 MG/5 ML VIAL (BRIDION) As Ordered ONE (10:21)
[2021-06-19] MEDS ORDERED: KETOROLAC 60MG 2ML VIAL As Ordered ONE (10:23)
[2021-06-19] MEDS ORDERED: HYDROMORPHONE HCL 0.5 MG/ 0.5 ML SYRINGE (J1170 PER 1) IV PRN (11:00)
[2021-06-19] MEDS ORDERED: ONDANSETRON 4MG/2ML VIAL IV PRN (11:00)
[2021-06-19] MEDS ORDERED: MEPERIDINE INJ 25 MG/ML VIAL (J2175) IV PRN (11:00)
[2021-06-19] MEDS ORDERED: LR 1,000 ML IV SCH (11:00)
[2021-06-19] MEDS ORDERED: PROMETHAZINE INJ 25 MG/ML VIAL (J2550) IV PRN (11:05)
[2021-06-19] MEDS: oxyCODONE 5MG TAB PO PRN ×2 (11:21→12:18)
[2021-06-19 12:50] VITALS: BP 117/68
== END 2021-06-19 12:54 | disposition home or self-care (01) ==
LOC: M SDC 07:47
PROVIDERS: ATTEND Obstetrics & Gynecology
DX: R10.2 Pelvic and perineal pain (principal); K66.0 Peritoneal adhesions (postprocedural) (postinfection); G43.909 Migraine, unspecified, not intractable, without status migrainosus; K21.9 Gastro-esophageal reflux disease without esophagitis; K58.8 Other irritable bowel syndrome; L40.9 Psoriasis, unspecified; Z79.899 Other long term (current) drug therapy; Z88.8 Allergy status to other drugs, medicaments and biological substances; Z91.010 Allergy to peanuts
CPT/HCPCS: 36415; 49320; 81025; 85027; J1885; J2175; J2250; J2405; J3010

== ENCOUNTER 2022-03-25 12:23 | Emergency (ER) | payer OTHER ==
[~2022-03-25] VITALS: Ht 167.6 cm; Wt 66.4 kg
[~2022-03-25 12:23] MED LIST changes: -ACETAMINOPHEN 500 MG TAB PO ONE; -LR 1,000 ML IV ONE
[2022-03-25] MEDS ORDERED: ACETAMINOPHEN 500 MG TAB PO ONE (19:20)
[2022-03-25 19:39] VITALS: O2SAT 100
[2022-03-25 20:06] VITALS: BP 123/72
== END 2022-03-25 20:09 | disposition home or self-care (01) ==
LOC: M ED 12:23
DX: U07.1 COVID-19 (principal); J06.9 Acute upper respiratory infection, unspecified; G90.A Postural orthostatic tachycardia syndrome [POTS]; K58.9 Irritable bowel syndrome, unspecified; Z87.820 Personal history of traumatic brain injury; G43.909 Migraine, unspecified, not intractable, without status migrainosus; Z79.3 Long term (current) use of hormonal contraceptives; Z79.899 Other long term (current) drug therapy; Z88.8 Allergy status to other drugs, medicaments and biological substances; Z91.010 Allergy to peanuts

== ENCOUNTER 2022-04-24 00:03 | Emergency (ER) | payer OTHER ==
[~2022-04-24] VITALS: Ht 167.6 cm; Wt 65.9 kg
[2022-04-24 00:57] LABS: BASO % 0.4 % (0.0-1.0); EOS # 0.1 10^3/uL (0.0-0.5); EOS % 1.3 % (0.0-3.0); HEMATOCRIT 39.2 % (36.0-47.0); LYMPH # 3.4 10^3/uL (1.5-5.0); LYMPH % 48.7 % (24.0-44.0); MEAN CORPUSCULAR HEMOGLOBIN 31.9 pg (27.0-33.0); MEAN CORPUSCULAR HGB CONC 35.7 g/dl (32.0-36.5); MEAN CORPUSCULAR VOLUME 89.3 fl (80.0-96.0); MONO # 0.6 10^3/uL (0.0-0.8); MONO % 7.8 % (2.0-8.0); NEUTROPHILS # 2.9 10^3/uL (1.5-8.5); NEUTROPHILS % 40.8 % (36.0-66.0); PLATELET COUNT, AUTOMATED 221 10^3/uL (150-450); RED BLOOD COUNT 4.39 10^6/uL (4.00-5.40); WHITE BLOOD COUNT 7.1 10^3/uL (4.0-10.0)
[2022-04-24 01:15] LABS: CK-MB VALUE MASS < 1.0 NG/ML (<3.6)
[2022-04-24 01:16] LABS: HCG, SERUM QUALITATIVE NEGATIVE (NEGATIVE); LIPASE 33 U/L (12-53)
[2022-04-24 01:18] LABS: ALBUMIN 4.1 G/DL (3.2-5.2); ALKALINE PHOSPHATASE 75 U/L (46-116); ALT/SGPT 17 U/L (7.0-40); AST/SGOT 13 U/L (<34); BILIRUBIN,DIRECT 0.1 MG/DL (<0.4); BILIRUBIN,TOTAL 0.4 MG/DL (0.3-1.2); BLOOD UREA NITROGEN 10 MG/DL (9-23); CARBON DIOXIDE LEVEL 22 MMOL/L (20-31); CHLORIDE LEVEL 109 MMOL/L (98-107); CPK CREATINE PHOSPHOKINASE 40 U/L (34-145); CREATININE FOR GFR 0.62 MG/DL (0.55-1.30); GLOMERULAR FILTRATION RATE > 60.0 (>60); GLUCOSE, FASTING 108 MG/DL (60-100); POTASSIUM SERUM 3.8 MMOL/L (3.5-5.1); SODIUM LEVEL 140 MMOL/L (136-145); TOTAL PROTEIN 6.9 G/DL (5.7-8.2)
[2022-04-24 01:19] LABS: THYROID STIMULATING HORMONE 1.812 uIU/ML (0.55-4.78)
[2022-04-24 01:20] LABS: FREE T4 0.89 NG/DL (0.89-1.76)
[2022-04-24 03:14] LABS: CK-MB VALUE MASS < 1.0 NG/ML (<3.6)
[2022-04-24 03:15] LABS: CPK CREATINE PHOSPHOKINASE 48 U/L (34-145); MB/CK RELATIVE INDEX 2.08 (< OR =4)
[2022-04-24] MEDS ORDERED: KETO10TAB PO (04:23)
[2022-04-24] MEDS ORDERED: KETOROLAC 30 MG/ML 1ML VIAL IV ONE (04:25)
[2022-04-24 05:00] VITALS: BP 108/70
== END 2022-04-24 05:20 | disposition home or self-care (01) ==
LOC: EDBD 00:03 → M ED 00:03
DX: R07.89 Other chest pain (principal); G90.A Postural orthostatic tachycardia syndrome [POTS]; Z79.899 Other long term (current) drug therapy; Z88.8 Allergy status to other drugs, medicaments and biological substances; Z91.040 Latex allergy status

== ENCOUNTER 2022-05-30 13:56 | Emergency (ER) | payer OTHER ==
[~2022-05-30] VITALS: Ht 167.6 cm; Wt 61.8 kg
[2022-05-30] MEDS ORDERED: TOPI100T9 (14:15)
[2022-05-30] MEDS ORDERED: UBRO100T (14:15)
[2022-05-30] MEDS ORDERED: FREM225A (14:15)
[2022-05-30 15:33] LABS: BASO % 0.4 % (0.0-1.0); EOS # 0.1 10^3/uL (0.0-0.5); EOS % 0.5 % (0.0-3.0); HEMATOCRIT 42.4 % (36.0-47.0); HEMOGLOBIN 14.5 g/dl (12.0-15.5); LYMPH # 3.2 10^3/uL (1.5-5.0); LYMPH % 34.4 % (24.0-44.0); MEAN CORPUSCULAR HEMOGLOBIN 31.1 pg (27.0-33.0); MEAN CORPUSCULAR HGB CONC 34.2 g/dl (32.0-36.5); MONO # 0.5 10^3/uL (0.0-0.8); MONO % 5.6 % (2.0-8.0); NEUTROPHILS # 5.4 10^3/uL (1.5-8.5); NEUTROPHILS % 58.8 % (36.0-66.0); PLATELET COUNT, AUTOMATED 238 10^3/uL (150-450); RED BLOOD COUNT 4.66 10^6/uL (4.00-5.40); WHITE BLOOD COUNT 9.2 10^3/uL (4.0-10.0)
[2022-05-30] MEDS ORDERED: FLUCONAZOLE 50MG TABLET PO ONE (15:45)
[2022-05-30 16:18] LABS: ALBUMIN 4.4 G/DL (3.2-5.2); ALKALINE PHOSPHATASE 74 U/L (46-116); ALT/SGPT 16 U/L (7.0-40); AST/SGOT 12 U/L (<34); BILIRUBIN,DIRECT 0.1 MG/DL (<0.4); BILIRUBIN,TOTAL 0.5 MG/DL (0.3-1.2); BLOOD UREA NITROGEN 10 MG/DL (9-23); CALCIUM LEVEL 9.7 MG/DL (8.5-10.1); CARBON DIOXIDE LEVEL 25 MMOL/L (20-31); CHLORIDE LEVEL 107 MMOL/L (98-107); CREATININE FOR GFR 0.75 MG/DL (0.55-1.30); GLOMERULAR FILTRATION RATE > 60.0 (>60); GLUCOSE, FASTING 88 MG/DL (60-100); POTASSIUM SERUM 4.4 MMOL/L (3.5-5.1); SODIUM LEVEL 139 MMOL/L (136-145); TOTAL PROTEIN 7.2 G/DL (5.7-8.2)
[2022-05-30 17:01] LABS: GC DNA AMPLIFICATION NEGATIVE (NEGATIVE)
[2022-05-30] MEDS ORDERED: ACETAMINOPHEN 500 MG TAB PO ONE (17:15)
[2022-05-30] MEDS ORDERED: KETOROLAC 30 MG/ML 1ML VIAL IV ONE (17:20)
[2022-05-30] MEDS ORDERED: KETO10TAB PO (17:37)
[2022-05-30] MEDS ORDERED: KETOROLAC TROMETHAMINE 10 MG TAB PO ONE (17:40)
[2022-05-30 17:47] VITALS: BP 143/85
== END 2022-05-30 17:49 | disposition home or self-care (01) ==
LOC: M ED 13:56
DX: N83.202 Unspecified ovarian cyst, left side (principal); N76.0 Acute vaginitis; K58.9 Irritable bowel syndrome, unspecified; G43.909 Migraine, unspecified, not intractable, without status migrainosus; F17.200 Nicotine dependence, unspecified, uncomplicated; Z87.42 Personal history of other diseases of the female genital tract; Z91.010 Allergy to peanuts; Z88.1 Allergy status to other antibiotic agents; Z79.1 Long term (current) use of non-steroidal anti-inflammatories (NSAID); Z79.899 Other long term (current) drug therapy

== ENCOUNTER 2022-07-30 10:50 | Day surgery (SDC) | payer OTHER ==
[~2022-07-30] VITALS: Ht 167.6 cm; Wt 63.5 kg
[~2022-07-30 10:50] MED LIST changes: +ACETAMINOPHEN *IV* 1,000 MG IV ONE; +FREM225A INJ; +NORE0.353 PO; +PROBCAP14 PO; +TOPI100T9 PO; +UBRO100T
[2022-07-30 11:25] LABS: HEMOGLOBIN 13.4 g/dl (12.0-15.5); MEAN CORPUSCULAR HGB CONC 34.4 g/dl (32.0-36.5); MEAN CORPUSCULAR VOLUME 93.1 fl (80.0-96.0); PLATELET COUNT, AUTOMATED 219 10^3/uL (150-450); RED BLOOD COUNT 4.19 10^6/uL (4.00-5.40)
[2022-07-30] MEDS ORDERED: fentaNYL 100 MCG/2 ML INJECTION As Ordered ONE (14:53)
[2022-07-30] MEDS ORDERED: KETOROLAC 60MG 2ML VIAL As Ordered ONE (14:53)
[2022-07-30] MEDS ORDERED: propofoL 200 MG/20 ML VIAL As Ordered ONE (14:53)
[2022-07-30] MEDS ORDERED: LIDOCAINE 2% 100MG/5ML SDV (FOR ANES.) As Ordered ONE (14:53)
[2022-07-30] MEDS ORDERED: MIDAZOLAM INJ 2MG/2ML VIAL As Ordered ONE (14:53)
[2022-07-30 15:55] VITALS: BP 112/73
== END 2022-07-30 16:08 | disposition home or self-care (01) ==
LOC: M SDC 10:50
PROVIDERS: ATTEND Obstetrics & Gynecology
DX: R87.612 Low grade squamous intraepithelial lesion on cytologic smear of cervix (LGSIL) (principal); R87.810 Cervical high risk human papillomavirus (HPV) DNA test positive; K58.8 Other irritable bowel syndrome; L40.9 Psoriasis, unspecified; G43.909 Migraine, unspecified, not intractable, without status migrainosus; F43.10 Post-traumatic stress disorder, unspecified; Z79.899 Other long term (current) drug therapy; Z91.010 Allergy to peanuts; Z88.8 Allergy status to other drugs, medicaments and biological substances
CPT/HCPCS: 36415; 57454; 85027; 88305; J1885; J2250; J3010